=== PATIENT | female | born 2000 | race African-American/Black ===

== ENCOUNTER 2023-04-10 06:05 | Emergency (ER) | payer MEDICAID ==
[~2023-04-10] VITALS: Ht 162.6 cm; Wt 54.4 kg
[2023-04-10 06:12] VITALS: BP 114/60; PULSE 110; RESP 16; TEMP 97.4; O2SAT 98
--- NOTE | 2023-04-10 06:45 | NUR ---
PT BROUGHT TO BED 4 VIA MARIANGEL BOWMAN
--- NOTE | 2023-04-10 07:24 | NUR ---
REPORT RECEIVED FROM MANUEL PARADA. ALL QUESTIONS ANSWERED. CONTINUATION OF CARE AT THIS POINT.
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
== END 2023-04-10 08:45 | disposition home or self-care (01) ==
LOC: MED 06:05
DX: S09.90XA Unspecified injury of head, initial encounter (principal); Y04.2XXA Assault by strike against or bumped into by another person, initial encounter; Y93.89 Activity, other specified; Y92.89 Other specified places as the place of occurrence of the external cause; Y99.8 Other external cause status
CPT/HCPCS: 70450; 81025; 99284